=== PATIENT | male | born 1970 | race Caucasian/White ===

== ENCOUNTER 2017-06-24 19:24 | Emergency (ER) ==
[2017-06-24 19:34] VITALS: BP 160/89; TEMP 97.3; BMI 23.0
[2017-06-24] MEDS ORDERED: MOTRIN PO STA (19:37)
--- NOTE | 2017-06-24 20:01 | DI ---
EXAM: Left elbow three views HISTORY: Trauma COMPARISON: None. FINDINGS: No evidence of fracture, dislocation or bony abnormality. The surrounding soft tissues a re unremarkable. IMPRESSION: No acute findings
--- NOTE | 2017-06-24 20:01 | DI ---
Exam: Two views left forearm. Clinical indication: Fall with injury with pain and swelling. Findings: There is no left elbow effusion. There are no fractures, dislocations or other significant bony abnormality. Impression: Negative radiographs of the left forearm.
--- NOTE | 2017-06-24 20:15 | ED.PDOC ---
General ED Provider: Dr. BERNARDO WAGNER Chief Complaint: Fall Stated Complaint: Patient is a 46 year old male who states that he stepped on a rake yesterday which hit his left elbow and then he stumbled and fell on the left side. Denies any loss of conciousness. Has chronic left shoulder pain but today left elbow was swollen. Time Seen by Physician: 19:35 Mode of Arrival: Walk-In Information Source: Patient [facility] T[facility] Documentation Reviewed and Agree: Yes Musculoskeletal Complaint Exam - Elbow Pain Complaint/Exam Mechanism of Injury: Reports: Trauma Onset/Duration: 1 day Symptoms Are: Still present Onset of Pain: Reports: Immediate Initial Severity: Moderate Current Severity: Moderate Location: Reports: Discrete (Lateral aspect of the elbow. ) Character: Reports: Aching, Throbbing Alleviating: Reports: None Aggravating: Reports: Movement, Twisting, Pulling Associated Signs and Symptoms: Reports: Swelling Related History: Denies: Similar episode, Occupational injury Related Surgical History: Reports: None Elbow Findings: Present: Swelling. Absent: Laceration Tenderness: Present: Lateral Condyle Limited Range of Motion: Present: Flexion Differential Diagnoses: Closed Fracture, Sprain, Strain, Tendonitis Review of Systems - Review Of Systems Constitutional: Reports: No symptoms Eyes: Reports: No symptoms Ears, Nose, Mouth, Throat: Reports: No symptoms Respiratory: Reports: No symptoms Cardiac: Reports: No symptoms GI: Reports: No symptoms : Reports: No symptoms Musculoskeletal: Reports: Joint pain, Joint swelling, Muscle pain Skin: Reports: No symptoms Neurological: Reports: No symptoms Endocrine: Reports: No symptoms Hematologic/Lymphatic: Reports: No symptoms All Other Systems: Reviewed and Negative Past Medical History - Past Medical History Previously Healthy: Yes Endocrine: Reports: None Cardiovascular: Reports: None Respiratory: Reports: Asthma Hematological: Reports: None Gastrointestinal: Reports: None Genitourinary: Reports: None Neuro/Psych: Reports: None Musculoskeletal: Reports: Arthritis, Back Pain (back spasms), Joint Pain ( shoulder pain; tendonitis in left shoulder), Other (RIGHT NECK PAIN) Cancer: Reports: None (asthma arth tendonitis in left shoulder, back spasms) Other Pertinent Past Medical History: low blood sugar - Surgical History General Surgical History: Reports: None - Family History Family History: Reports: Unknown - Social History Smoking Status: Current every day smoker, Heavy tobacco smoker Hx Substance Use: No Alcohol Screening: Occasionally - Immunizations Tetanus Shot up to Date: No Physical Exam - Physical Exam Appearance: Well-appearing, No pain distress, Well-nourished Eyes: MANUELA, EOMI, Conjunctiva clear ENT: Ears normal, Nose normal, Oropharynx normal Respiratory: Wheezes Cardiovascular: RRR, Pulses normal, No rub, No murmur Musculoskeletal: Normal strength, No calf tenderness, Limited ROM, Edema Skin: Warm, Dry, Normal color Neurological: Sensation intact, Motor intact, Alert, Oriented Psychiatric: Affect appropriate, Mood appropriate Critical Care Note - Critical Care Note Total Time (mins): 0 Course - Course Orders, Labs, Meds: Orders Category Date Time Status ELPIDIO [ED ELPIDIO WRAP] .ONCE EMERGENCY 06/24/17 20:21 Active Ibuprofen [Motrin] MEDS 06/24/17 19:37 Discontinued 800 mg PO ONCE STA ELBOW, RIGHT MIN 3 VIEWS Stat RADS 06/24/17 19:37 Completed FOREARM, LEFT 2 VIEWS Stat RADS 06/24/17 19:38 Completed Medications Discontinued Medications Generic Name Dose Route Start Last Admin Trade Name Freq PRN Reason Stop Dose Admin Ibuprofen 800 mg 06/24/17 19:37 06/24/17 19:43 Motrin PO 06/24/17 19:38 800 mg ONCE STA Administration Vital Signs: Temp Pulse Resp BP Pulse Ox 06/24/17 19:25 97.3 F L 96 H 18 160/89 H 90 L Departure - Departure Time of Disposition: 20:16 Disposition: HOME SELF-CARE Discharge Problem: Elbow joint pain Instructions: Elbow Sprain (ED), Arthralgia (ED) Condition: Fair Pt referred to PMD for follow-up: Yes Additional Instructions: Keep Elbow elevated Follow up with PCP in 3 days Prescriptions: Ibuprofen [Motrin] 600 mg PO Q6H PRN #30 tablet PRN Reason: Analgesia Tramadol HCl [Ultram] 50 mg PO Q6H PRN #14 tablet PRN Reason: Severe Pain Allergies/Adverse Reactions: Allergies No Known Allergies Allergy (Verified 06/24/17 19:31) Home Medications: Ambulatory Orders Ibuprofen [Motrin] 600 mg PO Q6H PRN #30 tablet 06/24/17 Tramadol HCl [Ultram] 50 mg PO Q6H PRN #14 tablet 06/24/17 Disposition Discussed With: Patient
== END 2017-06-24 20:30 | disposition home or self-care (01) ==
LOC: ED 19:24
DX: M25.522 Pain in left elbow (principal); W20.8XXA Other cause of strike by thrown, projected or falling object, initial encounter; W19.XXXA Unspecified fall, initial encounter; F17.210 Nicotine dependence, cigarettes, uncomplicated
CPT/HCPCS: 99283

== ENCOUNTER 2017-07-22 21:41 | Emergency (ER) ==
[2017-07-22 21:49] VITALS: BP 133/79; TEMP 98.6; BMI 22.8
--- NOTE | 2017-07-22 23:03 | ED.PDOC ---
General ED Provider: Dr. BERNARDO WAGNER Chief Complaint: Hand Laceration Stated Complaint: Pateint states that while working on brakes on vehicle, spring popped and cut palm of right hand with bleeding which was controlled with pressure Time Seen by Physician: 22:20 Mode of Arrival: Walk-In Information Source: Patient Exam Limitations: No limitations [facility] T[facility] Documentation Reviewed and Agree: Yes Skin Complaint Exam - Laceration/Abrasion/Hand Complaint/Exam Location of Injury: Right Mechanism of Injury: Laceration, Blunt trauma Onset/Duration: just prior to arrival Symptoms Are: Still present Initial Severity: Moderate Current Severity: Moderate Aggravating: Movement Alleviating: None Associated Signs and Symptoms: Denies: Fever, Chills, Erythema, Numbness, Tingling Related History: Reports: Right hand dominant Hand Picture: 1 - Y shapped laceration with minimal bleeding Differential Diagnoses: Laceration Review of Systems - Review Of Systems Constitutional: Reports: No symptoms Eyes: Reports: No symptoms Ears, Nose, Mouth, Throat: Reports: No symptoms Respiratory: Reports: No symptoms Cardiac: Reports: No symptoms GI: Reports: No symptoms : Reports: No symptoms Musculoskeletal: Reports: No symptoms Skin: Reports: Other (Laceration Right hand ) Neurological: Reports: No symptoms Endocrine: Reports: No symptoms Hematologic/Lymphatic: Reports: No symptoms All Other Systems: Reviewed and Negative Past Medical History - Past Medical History Previously Healthy: Yes Endocrine: Reports: None Cardiovascular: Reports: None Respiratory: Reports: Asthma Hematological: Reports: None Gastrointestinal: Reports: None Genitourinary: Reports: None Neuro/Psych: Reports: None Musculoskeletal: Reports: Arthritis, Back Pain (back spasms), Joint Pain ( shoulder pain; tendonitis in left shoulder), Other (RIGHT NECK PAIN) Cancer: Reports: None (asthma arth tendonitis in left shoulder, back spasms) Other Pertinent Past Medical History: low blood sugar - Surgical History General Surgical History: Reports: None - Family History Family History: Reports: Unknown - Social History Smoking Status: Current every day smoker Hx Substance Use: No Alcohol Screening: Occasionally - Immunizations Tetanus Shot up to Date: Yes (2017) Physical Exam - Physical Exam Appearance: Ill-appearing Skin: Warm, Dry Psychiatric: Anxious Procedures - Laceration/Wound Repair Right hand Wound Description: Irregular, Flap Wound Length (cm): 3 cm Wound Width: 0.5 Wound Depth: 0.2 Wound Explored: Contaminated Wound Irrigated: Yes Wound Prep: Hibiclens, Betadine Anesthesia: Lidocaine Wound Repaired With: Sutures Suture Size and Type: 4.0 Number of Sutures: 9 (5 running and 4 simple) Sterile Dressing Applied?: Yes Sling Applied?: No Progress: Tolerated procedure well Critical Care Note - Critical Care Note Total Time (mins): 0 Course - Course Vital Signs: Temp Pulse Resp BP Pulse Ox 07/22/17 21:42 98.6 F 102 H 20 133/79 94 L Departure - Departure Time of Disposition: 23:02 Disposition: HOME SELF-CARE Discharge Problem: Laceration of hand Instructions: Laceration (ED) Condition: Fair Pt referred to PMD for follow-up: Yes Additional Instructions: Follow up with PCP in 7-10 days to have sutures removed. Allergies/Adverse Reactions: Allergies No Known Allergies Allergy (Verified 07/22/17 21:48) Home Medications: Ambulatory Orders Ibuprofen [Motrin] 600 mg PO Q6H PRN #30 tablet 06/24/17 Tramadol HCl [Ultram] 50 mg PO Q6H PRN #14 tablet 06/24/17 Disposition Discussed With: Patient
[2017-07-22] MEDS ORDERED: LIDOCAINE HCL 1% SDV SUBCUT STA (23:23)
== END 2017-07-22 23:27 | disposition home or self-care (01) ==
LOC: ED 21:41
DX: S61.411A Laceration without foreign body of right hand, initial encounter (principal); W45.8XXA Other foreign body or object entering through skin, initial encounter; F17.210 Nicotine dependence, cigarettes, uncomplicated
CPT/HCPCS: 99283

== ENCOUNTER 2017-08-11 15:41 | Outpatient (CLI) ==
[2017-08-03 14:31] VITALS: BMI 21.4
--- NOTE | 2017-08-11 16:37 | CT ---
EXAM: CT of the chest without contrast History: Follow-up pulmonary nodules. Comparison: Thoracic spine CT 08/03/2017, chest CT 01/12/2014 Technique: Multiplanar CT images through the thorax were obtained without the administration of IV c ontrast Findings: Heart size is normal. Coronary calcifications. No pathologically enlarged thoracic lymph nodes. No pleural fluid and no pneumothorax. There are subtle diffuse centrilobular micronodules. 1.9 cm x 1.9 cm left upper lobe pleural-based cavitary lesion. Within the visualized upper abdomen, no acute findings. No acute osseous abnormalities. Impression: 1. Left upper lobe pleural-based cavitary lesion. Differential diagnosis would include tuberculosis , fungal infection or cystic metastasis. 2. Diffuse bilateral centrilobular micronodules most compatible with infectious or inflammatory proc ess such as bronchiolitis or hypersensitivity pneumonitis. Endobronchial spread of tumor is consider ed less likely. 3. Coronary artery disease
== END 2017-08-11 15:42 | disposition home or self-care (01) ==
LOC: RAD 15:41
PROVIDERS: ATTEND Emergency Medicine
DX: R91.1 Solitary pulmonary nodule (principal)

== ENCOUNTER 2017-08-16 15:47 | Outpatient (CLI) ==
[2017-08-03 14:31] VITALS: BMI 21.4
== END 2017-08-16 15:48 | disposition home or self-care (01) ==
LOC: LAB 15:47
PROVIDERS: ATTEND Emergency Medicine
DX: R91.1 Solitary pulmonary nodule (principal); R05 Cough
CPT/HCPCS: 36415

== ENCOUNTER 2017-11-12 16:18 | Outpatient (CLI) ==
[2017-08-03 14:31] VITALS: BMI 21.4
== END 2017-11-12 16:19 | disposition home or self-care (01) ==
LOC: LAB 16:18
PROVIDERS: ATTEND Emergency Medicine
DX: I10 Essential (primary) hypertension (principal); Z12.5 Encounter for screening for malignant neoplasm of prostate
CPT/HCPCS: 36415; 80053; 80061; 84443; 85025

== ENCOUNTER 2017-11-14 17:49 | Emergency (ER) ==
[2017-11-14 17:53] VITALS: BP 159/88; TEMP 98.3; BMI 21.5
[2017-11-14] MEDS ORDERED: ZOFRAN 4 MG/2 ML IM STA (18:29)
--- NOTE | 2017-11-14 18:32 | ED.PDOC ---
General ED Provider: Dr. SLIME URBANO Chief Complaint: Allergic Reaction Stated Complaint: abdominal pain after augmentin Time Seen by Physician: 18:00 (seen with staff ) Mode of Arrival: Walk-In Information Source: Patient Exam Limitations: No limitations Primary [facility] Nursing and Triage Documentation Reviewed and Agree: Yes Reviewed sepsis parameters & appropriate labs ordered?: Yes (has been on augmentin x 3 days) System Inflammatory Response Syndrome: Not Applicable Sepsis Protocol: For patient's 13 years and over: Temp is 96.8 and below OR 101 and greater Pulse >90 BPM Resp >20/minute Acutely Altered Mental Status Are patient's symptoms suggestive of a new infection, such as: -Pneumonia -Skin, Soft Tissue -Endocarditis -UTI -Bone, Joint Infection -Implantable Device -Acute Abdominal Infection -Wound Infection -Meningitis -Blood Stream Catheter Infection -Unknown System Inflammatory Response Syndrome: Not Applicable GI Complaint Exam - Vomiting/Diarrhea Complaint/Exam Onset/Duration: 3 days Symptoms Are: Still present Episodes of Vomiting over last 24 Hours: 3 Episodes of Diarrhea Over Last 24 Hours: 5 Initial Severity: Mild Current Severity: None Character of Vomiting: Reports: Non-bilious Aggravating: Reports: None Alleviating: Reports: None Associated Signs and Symptoms: Denies: Dizziness, Light-headedness, Melena, Hematemesis, Fever, Abdominal pain, Cramping Related History: Reports: Similar episode Non-GI Risk Factors: Reports: None Surgical Obstruction Risk Factors: Reports: None Related Surgical History: Reports: None Abdominal Findings: Present: None Review of Systems - Review Of Systems Constitutional: Reports: No symptoms Eyes: Reports: No symptoms Ears, Nose, Mouth, Throat: Reports: No symptoms Respiratory: Reports: No symptoms Cardiac: Reports: No symptoms GI: Reports: Abdominal pain, Diarrhea, Nausea, Vomiting : Reports: No symptoms Musculoskeletal: Reports: No symptoms Skin: Reports: No symptoms Neurological: Reports: No symptoms Endocrine: Reports: No symptoms Hematologic/Lymphatic: Reports: No symptoms All Other Systems: Reviewed and Negative Past Medical History - Past Medical History Previously Healthy: Yes Endocrine: Reports: None Cardiovascular: Reports: None Respiratory: Reports: Asthma Hematological: Reports: None Gastrointestinal: Reports: None Genitourinary: Reports: None Neuro/Psych: Reports: None Musculoskeletal: Reports: Arthritis, Back Pain (back spasms), Joint Pain ( shoulder pain; tendonitis in left shoulder), Other (RIGHT NECK PAIN) Cancer: Reports: None (asthma arth tendonitis in left shoulder, back spasms) Other Pertinent Past Medical History: low blood sugar - Surgical History General Surgical History: Reports: None - Family History Family History: Reports: Unknown - Social History Smoking Status: Current every day smoker, Heavy tobacco smoker Hx Substance Use: No Alcohol Screening: Occasionally Physical Exam - Physical Exam Appearance: Well-appearing, No pain distress, Well-nourished Eyes: MANUELA, EOMI, Conjunctiva clear ENT: Ears normal, Nose normal, Oropharynx normal Respiratory: Airway patent, Breath sounds clear, Breath sounds equal, Respirations nonlabored Cardiovascular: RRR, Pulses normal, No rub, No murmur GI/: Soft, Nontender, No masses, Bowel sounds normal, No Organomegaly Musculoskeletal: Normal strength, ROM intact, No edema, No calf tenderness Skin: Warm, Dry, Normal color Neurological: Sensation intact, Motor intact, Reflexes intact, Cranial nerves intact, Alert, Oriented Psychiatric: Affect appropriate, Mood appropriate Critical Care Note - Critical Care Note Total Time (mins): 0 Course - Course Orders, Labs, Meds: Orders Category Date Time Status EKG-(ED ONLY) Stat CARDIO 11/14/17 18:02 Completed Ondansetron HCl/Pf [Zofran 4 mg/2 ml] MEDS 11/14/17 18:29 Stat 4 mg IM ONCE STA Medications Discontinued Medications Generic Name Dose Route Start Last Admin Trade Name Freq PRN Reason Stop Dose Admin Ondansetron HCl 4 mg 11/14/17 18:29 Zofran 4 Mg/2 Ml IM 11/14/17 18:30 ONCE STA Vital Signs: Temp Pulse Resp BP Pulse Ox 11/14/17 17:50 98.3 F 118 H 16 159/88 H 96 Departure - Departure Time of Disposition: 18:32 (problem noted when pt started on augmention ) Disposition: HOME SELF-CARE Discharge Problem: Abdominal pain Qualifiers: Abdominal location: unspecified location Qualified Code(s): R10.9 - Unspecified abdominal pain Instructions: Abdominal Pain (ED) Condition: Good Pt referred to PMD for follow-up: Yes IPMP verified?: Yes Additional Instructions: Please call your Family Physician as soon as possible to schedule a follow-up appointment. Allergies/Adverse Reactions: Allergies amoxicillin [From Augmentin] Adverse Reaction (Verified 11/14/17 17:53) clavulanic acid [From Augmentin] Adverse Reaction (Verified 11/14/17 17:53) Home Medications: Ambulatory Orders Ibuprofen [Motrin] 600 mg PO Q6H PRN #30 tablet 06/24/17
== END 2017-11-14 19:02 | disposition home or self-care (01) ==
LOC: ED 17:49
DX: R10.9 Unspecified abdominal pain (principal); R11.2 Nausea with vomiting, unspecified; R19.7 Diarrhea, unspecified; F17.210 Nicotine dependence, cigarettes, uncomplicated
CPT/HCPCS: 93005; 93010; 96372; 99283

== ENCOUNTER 2018-12-11 18:33 | Emergency (ER) ==
[2018-12-11 18:39] VITALS: BP 124/81; TEMP 97.1; BMI 22.8
[2018-12-11] MEDS: TORADOL IM STA (20:27)
--- NOTE | 2018-12-11 20:35 | ED.PDOC ---
General ED Provider: Dr. MK ELISE MD Chief Complaint: Shoulder Pain/Injury Stated Complaint: pain Time Seen by Physician: 20:15 Mode of Arrival: Walk-In Information Source: Patient Exam Limitations: No limitations Primary Care Provider: TYREE HAMILTON Nursing and Triage Documentation Reviewed and Agree: Yes Does patient meet sepsis criteria?: No If yes, has appropriate treatment been initiated?: Yes System Inflammatory Response Syndrome: Not Applicable Sepsis Protocol: For patient's 13 years and over: Temp is 96.8 and below OR 101 and greater Pulse >90 BPM Resp >20/minute Acutely Altered Mental Status Are patient's symptoms suggestive of a new infection, such as: -Pneumonia -Skin, Soft Tissue -Endocarditis -UTI -Bone, Joint Infection -Implantable Device -Acute Abdominal Infection -Wound Infection -Meningitis -Blood Stream Catheter Infection -Unknown Review of Systems - Review Of Systems Constitutional: Reports: No symptoms Eyes: Reports: No symptoms Ears, Nose, Mouth, Throat: Reports: No symptoms Respiratory: Reports: No symptoms Cardiac: Reports: No symptoms GI: Reports: No symptoms : Reports: No symptoms Musculoskeletal: Reports: Joint pain Skin: Reports: No symptoms Neurological: Reports: No symptoms Endocrine: Reports: No symptoms Hematologic/Lymphatic: Reports: No symptoms All Other Systems: Reviewed and Negative Past Medical History - Past Medical History Previously Healthy: Yes Endocrine: Reports: None Cardiovascular: Reports: None Respiratory: Reports: Asthma Hematological: Reports: None Gastrointestinal: Reports: None Genitourinary: Reports: None Neuro/Psych: Reports: None Musculoskeletal: Reports: Arthritis, Back Pain (back spasms), Joint Pain ( shoulder pain; tendonitis in left shoulder), Other (RIGHT NECK PAIN) Cancer: Reports: None (asthma arth tendonitis in left shoulder, back spasms) Other Pertinent Past Medical History: low blood sugar - Surgical History General Surgical History: Reports: None - Family History Family History: Reports: Unknown - Social History Smoking Status: Current every day smoker, Heavy tobacco smoker Hx Substance Use: No Alcohol Screening: Occasionally Physical Exam - Physical Exam Appearance: Thin Ill-appearing: None Pain Distress: Moderate Eyes: MANUELA, EOMI, Conjunctiva clear ENT: Ears normal, Nose normal, Oropharynx normal Neck: Supple Respiratory: Airway patent Cardiovascular: RRR, Pulses normal, No rub, No murmur GI/: Soft, Nontender, No masses, Bowel sounds normal, No Organomegaly Musculoskeletal: Limited ROM, Limited strength (left ant medial head of deltoid tender) Skin: Warm, Dry, Normal color Neurological: Sensation intact, Motor intact, Reflexes intact, Cranial nerves intact, Alert, Oriented Psychiatric: Affect appropriate, Mood appropriate, Anxious Critical Care Note - Critical Care Note Total Time (mins): 0 Course - Course Orders, Labs, Meds: Orders Category Date Time Status Ketorolac Tromethamine [Toradol] MEDS 12/11/18 20:22 Discontinued 60 mg IM ONCE STA Medications Discontinued Medications Generic Name Dose Route Start Last Admin Trade Name Melvinq PRN Reason Stop Dose Admin Ketorolac Tromethamine 60 mg 12/11/18 20:22 12/11/18 20:27 Toradol IM 12/11/18 20:23 60 mg ONCE STA Administration Vital Signs: Temp Pulse Resp BP Pulse Ox 12/11/18 18:34 97.1 F L 96 H 20 124/81 96 Departure - Departure Time of Disposition: 21:00 Disposition: HOME SELF-CARE Discharge Problem: Left shoulder strain Instructions: Rotator Cuff Injury (ED) Condition: Good Pt referred to PMD for follow-up: Yes IPMP verified?: No Allergies/Adverse Reactions: Allergies amoxicillin [From Augmentin] Adverse Reaction (Verified 12/11/18 18:40) amoxicillin trihydrate [From Augmentin] Adverse Reaction (Verified 12/11/18 18: 40) clavulanic acid [From Augmentin] Adverse Reaction (Verified 12/11/18 18:40) potassium clavulanate [From Augmentin] Adverse Reaction (Verified 12/11/18 18:40 ) Home Medications: Ambulatory Orders Gabapentin 300 mg PO BEDTIME 11/02/18 Transfer Form Completed: No Disposition Discussed With: Patient, Family
== END 2018-12-11 21:15 | disposition home or self-care (01) ==
LOC: ED 18:33
DX: M25.512 Pain in left shoulder (principal); S46.912A Strain of unspecified muscle, fascia and tendon at shoulder and upper arm level, left arm, initial encounter
CPT/HCPCS: 96372; 99282

== ENCOUNTER 2019-01-09 16:06 | Emergency (ER) ==
[2019-01-09 16:14] VITALS: BP 137/83; TEMP 97.5; BMI 22.6
--- NOTE | 2019-01-09 16:45 | ED.PDOC ---
General ED Provider: Dr. SLIME URBANO Chief Complaint: Shoulder Pain/Injury Stated Complaint: left shoulder pain chronic Time Seen by Physician: 16:20 (sen with may at all times ) Mode of Arrival: Walk-In Information Source: Patient Exam Limitations: No limitations Primary Care Provider: TYREE HAMILTON Nursing and Triage Documentation Reviewed and Agree: Yes Does patient meet sepsis criteria?: No If yes, has appropriate treatment been initiated?: No System Inflammatory Response Syndrome: Not Applicable Sepsis Protocol: For patient's 13 years and over: Temp is 96.8 and below OR 101 and greater Pulse >90 BPM Resp >20/minute Acutely Altered Mental Status Are patient's symptoms suggestive of a new infection, such as: -Pneumonia -Skin, Soft Tissue -Endocarditis -UTI -Bone, Joint Infection -Implantable Device -Acute Abdominal Infection -Wound Infection -Meningitis -Blood Stream Catheter Infection -Unknown Musculoskeletal Complaint Exam - Shoulder Pain Complaint/Exam Mechanism of Injury: Reports: No known trauma Onset/Duration: chronic Symptoms Are: Still present Initial Severity: Moderate Current Severity: Moderate Location: Reports: Discrete Character: Reports: Aching, Spasmodic, Stiffness Alleviating: Reports: None Aggravating: Reports: None Associated Signs and Symptoms: Denies: Swelling, Redness, Bruising, Fever, Weakness, Numbness, Tingling Related History: Reports: Similar episode Non-Orthopedic Risk Factors: Reports: None DVT Risk Factors: Reports: None Septic Arthritis Risk Factors: Reports: None Related Surgical History: Reports: None Tenderness: Present: Rotator cuff muscles Limited Range of Motion: Present: External rotation, Rotator cuff muscles, Rotator cuff insertion Differential Diagnoses: Rotator Cuff Injury Review of Systems - Review Of Systems Constitutional: Reports: No symptoms Eyes: Reports: No symptoms Ears, Nose, Mouth, Throat: Reports: No symptoms Respiratory: Reports: No symptoms Cardiac: Reports: No symptoms GI: Reports: No symptoms : Reports: No symptoms Musculoskeletal: Reports: Other (shoulder pain) Skin: Reports: No symptoms Neurological: Reports: No symptoms Endocrine: Reports: No symptoms Hematologic/Lymphatic: Reports: No symptoms All Other Systems: Reviewed and Negative Past Medical History - Past Medical History Previously Healthy: Yes Endocrine: Reports: None Cardiovascular: Reports: None Respiratory: Reports: Asthma Hematological: Reports: None Gastrointestinal: Reports: None Genitourinary: Reports: None Neuro/Psych: Reports: None Musculoskeletal: Reports: Arthritis, Back Pain (back spasms), Joint Pain ( shoulder pain; tendonitis in left shoulder), Other (RIGHT NECK PAIN) Cancer: Reports: None (asthma arth tendonitis in left shoulder, back spasms) Other Pertinent Past Medical History: low blood sugar - Surgical History General Surgical History: Reports: None - Family History Family History: Reports: Unknown - Social History Smoking Status: Current every day smoker, Heavy tobacco smoker Hx Substance Use: No Alcohol Screening: Occasionally Physical Exam - Physical Exam Appearance: Well-appearing, No pain distress, Well-nourished Eyes: MANUELA, EOMI, Conjunctiva clear ENT: Ears normal, Nose normal, Oropharynx normal Respiratory: Airway patent, Breath sounds clear, Breath sounds equal, Respirations nonlabored Cardiovascular: RRR, Pulses normal, No rub, No murmur GI/: Soft, Nontender, No masses, Bowel sounds normal, No Organomegaly Musculoskeletal: Normal strength, ROM intact, No edema, No calf tenderness Skin: Warm, Dry, Normal color Neurological: Sensation intact, Motor intact, Reflexes intact, Cranial nerves intact, Alert, Oriented Psychiatric: Affect appropriate, Mood appropriate Critical Care Note - Critical Care Note Total Time (mins): 0 Course - Course Vital Signs: Temp Pulse Resp BP Pulse Ox 01/09/19 16:07 97.5 F L 102 H 20 137/83 95 Departure - Departure Time of Disposition: 16:45 Disposition: HOME SELF-CARE Discharge Problem: Injury of shoulder region Instructions: Shoulder Sprain (ED), Arthralgia (ED) Condition: Good Pt referred to PMD for follow-up: No IPMP verified?: No Additional Instructions: Please call your Family Physician as soon as possible to schedule a follow-up appointment. Prescriptions: Hydrocodone/Acetaminophen [[place] 10-325 Tablet] 1 each PO Q8HR #10 tablet Allergies/Adverse Reactions: Allergies amoxicillin [From Augmentin] Adverse Reaction (Verified 01/09/19 16:14) amoxicillin trihydrate [From Augmentin] Adverse Reaction (Verified 01/09/19 16: 14) clavulanic acid [From Augmentin] Adverse Reaction (Verified 01/09/19 16:14) potassium clavulanate [From Augmentin] Adverse Reaction (Verified 01/09/19 16:14 ) Home Medications: Ambulatory Orders Gabapentin 300 mg PO BEDTIME 11/02/18 Hydrocodone/Acetaminophen [[place] 10-325 Tablet] 1 each PO Q8HR #10 tablet
== END 2019-01-09 16:59 | disposition home or self-care (01) ==
LOC: ED 16:06
DX: S49.92XA Unspecified injury of left shoulder and upper arm, initial encounter (principal); F17.210 Nicotine dependence, cigarettes, uncomplicated
CPT/HCPCS: 99282